=== PATIENT | female | born 1995 | race Caucasian/White ===

== ENCOUNTER 2017-07-30 01:00 | Emergency (ER) | payer SELFPAY ==
--- NOTE | 2017-07-30 01:23 | EDM.PDOC ---
ED HPI GENERAL MEDICAL PROBLEM - General Chief Complaint: Lower Extremity Injury/Pain Stated Complaint: LEFT FOOT PAIN Time Seen by Provider: 07/30/17 01:15 - History of Present Illness INITIAL COMMENTS - FREE TEXT/NARRATIVE: HISTORY AND PHYSICAL: History of present illness: The patient is a healthy 21-year-old female who presents with complaints of pain to the top outer aspect of her left foot that started yesterday and worsened today. The patient denies any direct trauma to the area and has not noticed any swelling or bruising and has no neurosensory changes to the rest of her foot. Her ankle and proximally is without tenderness or discomfort. She has not taken anything for this pain prior to coming here. Patient does state that she stands for long periods of time on her feet at work. Patient states she is unsure if she is for any medications or imaging. Review of systems: As per history of present illness and below otherwise all systems reviewed and negative. Past medical history: As per history of present illness and as reviewed below otherwise noncontributory. Surgical history: As per history of present illness and as reviewed below otherwise noncontributory. Social history: No reported history of drug or alcohol abuse. Family history: As per history of present illness and as reviewed below otherwise noncontributory. Physical exam: Gen.: Well-developed well-nourished female who is overweight and nontoxic and vital signs been reviewed by me. HEENT: Atraumatic, normocephalic, negative for conjunctival pallor or scleral icterus, mucous membranes moist, throat clear, neck supple, nontender, trachea midline. Lungs: Clear to auscultation, breath sounds equal bilaterally, chest nontender. Heart: S1S2, regular rate and rhythm no overt murmurs Abdomen: Soft, nondistended, nontender. NABS. Pelvis: Stable nontender. Genitourinary: Deferred. Rectal: Deferred. Extremities: Atraumatic, there is some minimal tenderness at palpation of the dorsal aspect of the left foot at the midfoot and at the MTP area but there is no defects deformities crepitus ecchymosis or soft tissue swelling appreciated. There is no warmth to any of the joints of the foot in the arch and heel are without tenderness. Neurovascular is intact. Proximally there is no ankle leg or knee pain. The legs are negative for cords or calf pain. Neurovascular unremarkable. Neuro: Awake, alert, oriented. Cranial nerves II through XII unremarkable. Cerebellum unremarkable. Motor and sensory unremarkable throughout. Exam nonfocal. It is noted on my evaluation the patient is wearing somewhat older gym shoes and she states there at least 6 months of age. Diagnostics: X-ray left foot [employer]: Motrin, crutches Impression: Left foot pain Definitive disposition and diagnosis as appropriate pending reevaluation and review of above. right foot Pain Score (Numeric/FACES): 5 - Related Data Allergies Allergy/AdvReac Type Severity Reaction Status Date / Time No Known Allergies Allergy Verified 07/30/17 01:11 Home Meds: Home Meds . [No Known Home Meds] 07/22/16 [History] Past Medical History - Past Health History Medical/Surgical History: Denies Medical/Surgical History Social & Family History - Tobacco Use Smoking Status *Q: Current Every Day Smoker Years of Tobacco use: 4 Packs/Tins Daily: 0.5 - Caffeine Use Caffeine Use: Reports: Coffee, Soda - Alcohol Use Days Per Week of Alcohol Use: 0 - Recreational Drug Use Recreational Drug Use: No Review of Systems - Review of Systems Review Of Systems: ROS reveals no pertinent complaints other than HPI. ED EXAM, GENERAL - Physical Exam Exam: See Below (See dictation) Course - Vital Signs Last Recorded V/S: Last Vital Signs Temp 36.6 C 07/30/17 01:11 Pulse 86 07/30/17 01:11 Resp 18 07/30/17 01:11 BP 131/81 07/30/17 01:11 Pulse Ox 98 07/30/17 01:11 - Orders/Labs/Meds Orders: Active Orders 24 hr Category Date Time Status Foot Comp Min 3V Lt [CR] Stat Exams 07/30/17 01:19 Taken Ibuprofen [Motrin] Med 07/30/17 02:10 Once 800 mg PO ONETIME ONE DME for Discharge [COMM] Stat Oth 07/30/17 02:09 Ordered Medication Orders Ibuprofen (Motrin) 800 mg PO ONETIME ONE Stop: 07/30/17 02:11 Labs: Laboratory Tests 07/30/17 Range/Units 01:19 Urine HCG, Qual NEGATIVE (NEGATIVE) Meds: Medications Generic Name Dose Route Start Last Admin Trade Name Freq PRN Reason Stop Dose Admin Ibuprofen 800 mg 07/30/17 02:10 Motrin PO 07/30/17 02:11 ONETIME ONE Discontinued Medications Generic Name Dose Route Start Last Admin Trade Name Morenita PRN Reason Stop Dose Admin Ketorolac Tromethamine 60 mg 07/30/17 02:09 Toradol IM 07/30/17 02:10 ONETIME ONE Departure - Departure Time of Disposition: 02:11 Disposition: Home, Self-Care 01 Condition: Good Clinical Impression: Foot pain, left - Discharge Information Referrals: PCP,None [Primary Care Provider] - Forms: ED Department Discharge Additional Instructions: The following information is given to patients seen in the emergency department who are being discharged to home. This information is to outline your options for follow-up care. We provide all patients seen in our emergency department with a follow-up referral. The need for follow-up, as well as the timing and circumstances, are variable depending upon the specifics of your emergency department visit. If you don't have a primary care physician on staff, we will provide you with a referral. We always advise you to contact your personal physician following an emergency department visit to inform them of the circumstance of the visit and for follow-up with them and/or the need for any referrals to a consulting specialist. The emergency department will also refer you to a specialist when appropriate. This referral assures that you have the opportunity for followup care with a specialist. All of these measure are taken in an effort to provide you with optimal care, which includes your followup. Under all circumstances we always encourage you to contact your private physician who remains a resource for coordinating your care. When calling for followup care, please make the office aware that this follow-up is from your recent emergency room visit. If for any reason you are refused follow-up, please contact the [facility] emergency department at and ask to speak to the emergency department charge nurse. [facility] Podiat[facility] [address] [place] [id number] Fax: [phone] Dr Kamlesh Hurd [address] [place] [id number] Please contact one of our podiatrists, mechanical specialist, for further care and evaluation of this pain. Ice and elevate as much as possible especially after working and standing for long periods of time. Please return to ER as needed and as discussed. [id number] medications for pain. - My Orders Last 24 Hours: My Active Orders 07/30/17 01:19 Foot Comp Min 3V Lt [CR] Stat 07/30/17 02:09 DME for Discharge [COMM] Stat 07/30/17 02:10 Ibuprofen [Motrin] 800 mg PO ONETIME ONE - Assessment/Plan Last 24 Hours: My Active Orders 07/30/17 01:19 Foot Comp Min 3V Lt [CR] Stat 07/30/17 02:09 DME for Discharge [COMM] Stat 07/30/17 02:10 Ibuprofen [Motrin] 800 mg PO ONETIME ONE
[2017-07-30] MEDS ORDERED: Ketorolac 60 MG/2 ML SDV IM ONE (02:09)
[2017-07-30] MEDS ORDERED: Ibuprofen 800 MG Tab PO ONE (02:10)
[2017-07-30 06:44] VITALS: BP 111/73
--- NOTE | 2017-08-01 13:57 | CR ---
EXAM DATE: 07/30/17 PATIENT'S AGE: 21 Patient: AFTAB ALBA Facility: [place], [place] Site . Site : [id number] Study: XRay Extremity Left [id number]/9/2017 2:01:18 AM Ordering Physician: Anjel Chung Final Report: INDICATION: Non injury foot pain TECHNIQUE: Foot radiograph 3 views left COMPARISON: None FINDINGS: Bones: Alignment is normal. No acute fractures or aggressive bone lesions identified. Joint spaces: Unremarkable. No ankle effusion is seen. Soft tissues: Unremarkable. Kager`s fat pad is normal in appearance. The visualized Achilles` tendon is unremarkable. No radiopaque foreign bodies are seen. IMPRESSION: 1. No acute osseous injuries are noted. Dictated by: Talat Chiu MD @ 07/30/2017 02:05:29 (Electronic Signature) Report Signed by Proxy. MEGHNA
== END 2017-07-30 02:23 | disposition home or self-care (01) ==
LOC: MW.ED 01:00
DX: M79.672 Pain in left foot (principal); F17.210 Nicotine dependence, cigarettes, uncomplicated
CPT/HCPCS: 73630; 81025; 99283; A9270